=== PATIENT | female | born 1960 | race Caucasian/White ===

== ENCOUNTER 2016-12-08 17:23 | Emergency (ER) | payer MEDICARE, OTHER ==
[~2016-12-08] VITALS: Ht 175.3 cm; Wt 86.4 kg
[2016-12-08 17:45] VITALS: Ht 175.3 cm; Wt 86.4 kg
[2016-12-08] MEDS ORDERED: BELLADONNA/PHENOBARBITAL TAB PO STA (17:56)
[2016-12-08] MEDS ORDERED: FAMOTIDINE 20 MG TAB PO STA (17:56)
[2016-12-08] MEDS ORDERED: SOD CHLORIDE 0.9% 1,000 ML IV STA (17:56)
[2016-12-08] MEDS ORDERED: LIDOCAINE/MYLANTA 40 ML BTL PO STA (17:56)
[2016-12-08] MEDS ORDERED: ONDANSETRON 4 MG INJ IV STA (17:56)
[2016-12-08] MEDS ORDERED: KETOROLAC 15 MG INJ IV STA (17:56)
[2016-12-08] MEDS ORDERED: LORAZEPAM 2 MG INJ IV ONE (18:00)
[2016-12-08] MEDS ORDERED: LORA0.5T PO (18:21)
[2016-12-08] MEDS ORDERED: MECL-77 PO (18:21)
[2016-12-08 18:26] LABS: ADD SCAN DIFF NO
[2016-12-08 18:29] LABS: BASOPHIL # 0.1 10^3/ul (0.0-0.1); BASOPHILS % 0.5 % (0.0-2.0); EOSINOPHILS # 0.3 10^3/ul (0.0-0.5); EOSINOPHILS % 2.6 % (0.0-7.0); HEMATOCRIT 40.7 % (37.0-47.0); LYMPHOCYTES # 2.9 10^3/ul (0.8-2.9); LYMPHOCYTES % 29.3 % (15.0-51.0); MEAN CORPUSCULAR HEMOGLOBIN 31.1 pg (29.0-33.0); MEAN CORPUSCULAR HGB CONC 34.4 g/dl (32.0-37.0); MEAN CORPUSCULAR VOLUME 90.4 fl (82.0-101.0); MEAN PLATELET VOLUME 9.6 fl (7.4-10.4); MONOCYTE # 0.6 10^3/ul (0.3-0.9); MONOCYTES % 6.5 % (0.0-11.0); NEUTROPHILS % 60.8 % (39.0-77.0); PLATELET COUNT 289 10^3/UL (140-415); RED CELL DISTRIBUTION WIDTH 12.2 % (11.5-14.5); WHITE BLOOD COUNT 9.9 10^3/ul (4.8-10.8)
[2016-12-08] MEDS ORDERED: [UNRECOGNIZED DRUG - CODE] PO (18:29)
[2016-12-08 18:53] LABS: ALBUMIN 4.6 g/dl (3.3-4.9); CHLORIDE 103 mmol/L (97-110); POTASSIUM 3.6 mmol/L (3.5-5.1); SODIUM 144 mmol/L (135-144)
[2016-12-08 18:55] LABS: CREATININE 0.71 mg/dl (0.44-1.00)
[2016-12-08 18:56] LABS: ALANINE AMINOTRANSFERASE 40 IU/L (13-69); ALBUMIN/GLOBULIN RATIO 1.31; ALKALINE PHOSPHATASE 164 IU/L (42-121); ANION GAP 19 (8-16); ASPARTATE AMINO TRANSFERASE 33 IU/L (15-46); BILIRUBIN,INDIRECT 0.7 mg/dl (0-1.1); BILIRUBIN,TOTAL 0.7 mg/dl (0.2-1.3); BLOOD UREA NITROGEN 16 mg/dl (7-20); CALCIUM 9.7 mg/dl (8.4-10.2); CARBON DIOXIDE 26 mmol/L (21-31); GLUCOSE 108 mg/dl (70-220); TOTAL PROTEIN 8.1 g/dl (6.1-8.1)
--- NOTE | 2016-12-08 19:02 | ERD ---
ER Documentation Chief Complaint Date/Time DATE: 12/08/16 TIME: 18:53 Chief Complaint ap/epistrastic pain starting this morning but worsened in the afternoon HPI 56-year-old woman brought in by EMS for sharp nonexertional nonradiating epigastric abdominal pain as well as anxiety. She states usually when she becomes anxious she experiences this type of epigastric pain. She describes it as burning, associated with belching, she has had no blood per rectum or melena , no chest pain or shortness of breath, no fevers or chills. Patient denies suicidal homicidal ideation. ROS All systems reviewed and are negative except as per history of present illness. Medications Home Meds Active Scripts Alprazolam* (Xanax*) 0.5 Mg Tab, 0.5 MG PO TID for ANXIETY, #12 TAB Prov:TOSIN ENRIQUEZ MD 12/08/16 Ondansetron Hcl* (Zofran*) 4 Mg Tablet, 4 MG PO Q8H Y for NAUSEA AND/OR VOMITING , #30 TAB Prov:TOSIN ENRIQUEZ MD 12/08/16 Famotidine* (Famotidine*) 40 Mg Tablet, 40 MG PO HS, #30 TAB Prov:TOSIN ENRIQUEZ MD 12/08/16 Mag Hydrox/Al Hydrox/Simeth (Maalox Advanced Suspension) 355 Ml Oral.susp, 2 TSP PO TID for PAIN, #24 Prov:TOSIN ENRIQUEZ MD 12/08/16 Reported Medications Imipramine Pamoate (Imipramine Pamoate) 100 Mg Capsule, 100 MG PO BID, CAP 12/08/16 Lorazepam* (Lorazepam*) 0.5 Mg Tablet, 0.05 MG PO PRN Y for ANXIETY, TAB 12/08/16 Meclizine Hcl* (Meclizine Hcl*) 25 Mg Tablet, 25 MG PO BID Y for DIZZINESS, TAB 12/08/16 Allergies Allergies: Coded Allergies: No Known Allergy (Unverified , 12/08/16) PMhx/Soc Anxiety, gastritis History of Surgery: Yes (HERNIA REPAIR) Anesthesia Reaction: No Hx Neurological Disorder: No Hx Respiratory Disorders: No Hx Cardiac Disorders: No Hx Psychiatric Problems: Yes (DEPRESSION) Hx Miscellaneous Medical Probl: Yes (VERTIGO) Hx Alcohol Use: No Hx Substance Use: No Hx Tobacco Use: No Smoking Status: Never smoker FmHx Family History: No diabetes Physical Exam Vitals Vital Signs Date Time Temp Pulse Resp B/P Pulse Ox O2 Delivery O2 Flow Rate FiO2 12/08/16 20:44 98.2 70 18 130/80 100 Room Air 12/08/16 17:45 98.2 84 18 146/92 100 Physical Exam GENERAL: Well-developed, well-nourished, anxious HEENT: Moist mucous membranes, pink conjunctiva, no cervical spine tenderness or step-off deformities, no goiter, no jaundice or icterus, extraocular movements intact without pain. No submandibular induration, and no pharyngeal erythema NEURO: Alert and oriented 3, cranial nerves II through XII intact bilaterally, pupils equal round reactive to light, no focal deficits or facial asymmetry, sensation intact distally Strength 5/5 in upper and lower extremities bilaterally CARDIAC: Regular rate and rhythm, no murmurs rubs or gallops LUNGS: Clear bilaterally no wheezing crackles or stridor ABDOMEN: Soft nontender, no guarding, no rigidity, no rebound, no psoas sign no obturator sign. Normoactive bowel sounds SKIN: Warm and dry to touch, no abrasions, contusions, or hematomas, no lacerations, no ecchymosis, no target lesions, and without ulcers EXTREMITIES: No clubbing cyanosis or edema, calves are bilaterally symmetrical, no Homans sign, no popliteal cord sign. Distal pulses equal and bilateral PSYCH: Anxious Result Diagram: 12/08/16181512/08/166 Results 24 hrs Laboratory Tests Test 12/08/16 18:16 White Blood Count 9.910^3/ul Red Blood Count 4.5010^6/ul Hemoglobin 14.0g/dl Hematocrit 40.7% Mean Corpuscular Volume 90.4fl Mean Corpuscular Hemoglobin 31.1pg Mean Corpuscular Hemoglobin Concent 34.4g/dl Red Cell Distribution Width 12.2% Platelet Count 46507^3/UL Mean Platelet Volume 9.6fl Neutrophils % 60.8% Lymphocytes % 29.3% Monocytes % 6.5% Eosinophils % 2.6% Basophils % 0.5% Nucleated Red Blood Cells % 0.0/100WBC Neutrophils # 6.010^3/ul Lymphocytes # 2.910^3/ul Monocytes # 0.610^3/ul Eosinophils # 0.310^3/ul Basophils # 0.110^3/ul Nucleated Red Blood Cells # 0.010^3/ul Sodium Level 144mmol/L Potassium Level 3.6mmol/L Chloride Level 103mmol/L Carbon Dioxide Level 26mmol/L Anion Gap 19 Blood Urea Nitrogen 16mg/dl Creatinine 0.71mg/dl Glucose Level 108mg/dl Calcium Level 9.7mg/dl Total Bilirubin 0.7mg/dl Direct Bilirubin 0.00mg/dl Indirect Bilirubin 0.7mg/dl Aspartate Amino Transf (AST/SGOT) 33IU/L Alanine Aminotransferase (ALT/SGPT) 40IU/L Alkaline Phosphatase 164IU/L Troponin I < 0.012ng/ml Total Protein 8.1g/dl Albumin 4.6g/dl Globulin 3.50g/dl Albumin/Globulin Ratio 1.31 Lipase 194U/L Current Medications Medications (Trade) Dose Ordered Sig/Otf Route PRN Reason Start Time Stop Time Status Last Admin Dose Admin Lorazepam 0.5 mg 0.5 mg ONCE ONCE IV 12/08/16 18:00 12/08/16 18:01 DC 12/08/16 18:45 Sodium Chloride (NS) 1,000 ml @ 1,000 mls/hr Q1H STAT IV 12/08/16 17:56 12/08/16 18:55 DC 12/08/16 18:45 Ondansetron HCl (Zofran Inj) 4 mg ONCE STAT IV 12/08/16 17:56 12/08/16 17:58 DC 12/08/16 18:45 Famotidine (Pepcid) 40 mg ONCE STAT PO 12/08/16 17:56 12/08/16 17:58 DC 12/08/16 18:45 Miscellaneous Medication (Gi Cocktail (2)) 40 ml ONCE STAT PO 12/08/16 17:56 12/08/16 17:58 DC 12/08/16 18:45 Belladonna/ Phenobarbital () 2 tab ONCE STAT PO 12/08/16 17:56 12/08/16 17:58 DC 12/08/16 18:45 Ketorolac Tromethamine (Toradol) 15 mg ONCE STAT IV 12/08/16 17:56 12/08/16 17:58 DC 12/08/16 18:44 Procedures/MDM IV line was established patient was placed on panel monitor rhythm strip revealed a sinus rhythm at about 80 bpm with upright P and T waves. Patient was afebrile. EKG performed, read by me: 76 bpm, normal sinus rhythm, normal axis, no acute ST segment changes, narrow QRS complex, with good R-wave progression in precordial leads. I administered 1 L normal saline intravenously, Toradol 15 mg IV, Zofran 4 mg IV , GI cocktail 50 cc p.o., famotidine 40 mg p.o., lorazepam 0.5 mg IV with good response. Patient's symptoms including anxiety improved. CBC and electrolytes were normal, liver function tests were normal, troponin was negative. Differential diagnoses considered, included but not limited to acute coronary syndrome, pulmonary embolism, aortic dissection, abdominal aortic aneurysm, sepsis, stroke, meningitis, encephalitis, pneumonia, appendicitis, cholecystitis , bowel obstruction, pyelonephritis, nephrolithiasis, cystitis, as well as metabolic, hematologic, and electrolyte abnormalities. As well as abscess, cellulitis, fractures, and dislocations. Patient feels much better at this time, and vital signs are normal, symptoms have improved. I did give strict instructions to return to the ED if symptoms continue or worsen, patient will otherwise follow-up with primary care physician. Patient understood instructions and agreed to plan. Departure Diagnosis: Primary Impression: Epigastric pain Additional Impression: Acute anxiety Condition: Good TOSIN ENRIQUEZ MD December 08, 2016 19:02
[2016-12-08 19:12] LABS: TROPONIN-I < 0.012 ng/ml (0.00-0.12)
[2016-12-08] MEDS ORDERED: MAG355OR14 PO (19:35)
[2016-12-08] MEDS ORDERED: FAMO40TA52 PO (19:35)
[2016-12-08] MEDS ORDERED: ALPR0.5T PO (19:35)
[2016-12-08] MEDS ORDERED: ONDA4TAB8 PO (19:35)
[2016-12-08 20:44] VITALS: BP 130/80; PULSE 70; RESP 18; TEMP 98.2
== END 2016-12-08 20:45 | disposition home or self-care (01) ==
LOC: E/R 17:23
DX: R10.13 Epigastric pain (principal); F41.9 Anxiety disorder, unspecified
CPT/HCPCS: 36415; 80053; 83690; 84484; 85025; 93005; 96374; 96375; 99284; J1885; J2060; J2405; J7030

== ENCOUNTER 2016-12-11 21:23 | Emergency (ER) | payer MEDICARE, OTHER ==
[~2016-12-11] VITALS: Ht 162.6 cm; Wt 81.5 kg
[~2016-12-11 21:23] MED LIST: ALPR0.5T PO; FAMO40TA52 PO; LORA0.5T PO; MAG355OR14 PO; MECL-77 PO; ONDA4TAB8 PO; [UNRECOGNIZED DRUG - CODE] PO
[2016-12-11 21:27] VITALS: Ht 162.6 cm; Wt 81.5 kg
[2016-12-11] MEDS ORDERED: ONDANSETRON 4 MG INJ IV STA (22:00)
[2016-12-11] MEDS ORDERED: morphine 4 MG/ML VIAL IV STA (22:00)
--- NOTE | 2016-12-11 22:05 | ERD ---
ER Documentation Chief Complaint Date/Time DATE: 12/11/16 TIME: 22:02 Chief Complaint epigastric pain x 1 month HPI Patient is a 56-year-old female who presents with 1 month of sudden onset, variable intensity, sharp and burning, intermittent epigastric pain that is worse after eating. She reports that the pain radiates up into her chest. She denies vomiting or fever. Denies constipation or diarrhea. She reports that today at 5:00 PM, she started having epigastric pain after eating and enchilada. The pain was mild for approximately 3 hours. She then ate a bowl of cereal with milk, and the pain became severe. Pain occasionally radiates to the back and right upper quadrant. She denies dysuria or hematuria. The patient was seen in the ER 4 days ago and had unremarkable labs, but no ultrasound was performed. ROS All systems reviewed and are negative except as per history of present illness. Medications Home Meds Active Scripts Alprazolam* (Xanax*) 0.5 Mg Tab, 0.5 MG PO TID for ANXIETY, #12 TAB Prov:TOSIN ENRIQUEZ MD 12/08/16 Ondansetron Hcl* (Zofran*) 4 Mg Tablet, 4 MG PO Q8H Y for NAUSEA AND/OR VOMITING , #30 TAB Prov:TOSIN ENRIQUEZ MD 12/08/16 Famotidine* (Famotidine*) 40 Mg Tablet, 40 MG PO HS, #30 TAB Prov:TOSIN ENRIQUEZ MD 12/08/16 Mag Hydrox/Al Hydrox/Simeth (Maalox Advanced Suspension) 355 Ml Oral.susp, 2 TSP PO TID for PAIN, #24 Prov:TOSIN ENRIQUEZ MD 12/08/16 Reported Medications Meclizine Hcl* (Meclizine Hcl*) 25 Mg Tablet, 50 MG PO BID Y for DIZZINESS, TAB 12/11/16 Imipramine Pamoate (Imipramine Pamoate) 100 Mg Capsule, 100 MG PO BID, CAP 12/08/16 Lorazepam* (Lorazepam*) 0.5 Mg Tablet, 0.05 MG PO PRN Y for ANXIETY, TAB 12/08/16 Discontinued Reported Medications Meclizine Hcl* (Meclizine Hcl*) 25 Mg Tablet, 25 MG PO BID Y for DIZZINESS, TAB 12/08/16 Allergies Allergies: Coded Allergies: No Known Allergy (Unverified , 12/11/16) PMhx/Soc Past medical history: Gastritis, depression, vertigo Past surgical history: Hernia 15 years ago Social history: Denies tobacco or alcohol. History of Surgery: Yes (HERNIA REPAIR) Anesthesia Reaction: No Hx Neurological Disorder: No Hx Respiratory Disorders: No Hx Cardiac Disorders: No Hx Psychiatric Problems: Yes (DEPRESSION) Hx Miscellaneous Medical Probl: Yes (VERTIGO) Hx Alcohol Use: No Hx Substance Use: No Hx Tobacco Use: No Smoking Status: Never smoker FmHx Family History: No coronary disease, No diabetes Physical Exam Vitals Vital Signs Date Time Temp Pulse Resp B/P Pulse Ox O2 Delivery O2 Flow Rate FiO2 12/12/16 00:49 81 18 133/86 97 Room Air 12/11/16 23:31 84 139/80 12/11/16 21:27 98.4 89 20 172/90 100 Physical Exam Const: Alert, in mild to moderate pain Head: Atraumatic Eyes: Normal Conjunctiva, no pallor, no icterus ENT: Normal External Ears, Nose and Mouth. Mucous membranes moist Neck: Full range of motion..~ No meningismus. Resp: Clear to auscultation bilaterally, no wheezes, no rales Cardio: Regular rate and rhythm, no murmurs Abd: Soft, nondistended, tender in the epigastrium and right upper quadrant.. Normal bowel sounds Skin: No petechiae or rashes Back: No midline or flank tenderness, no CVA tenderness Ext: No cyanosis, or edema Neur: Awake and alert Psych: Normal Mood and Affect Result Diagram: 12/11/165 12/11/162214 Results 24 hrs Laboratory Tests Test 12/11/16 22:15 12/12/16 00:26 12/12/16 00:28 White Blood Count 8.110^3/ul Red Blood Count 4.1910^6/ul Hemoglobin 13.5g/dl Hematocrit 38.1% Mean Corpuscular Volume 90.9fl Mean Corpuscular Hemoglobin 32.2pg Mean Corpuscular Hemoglobin Concent 35.4g/dl Red Cell Distribution Width 11.9% Platelet Count 17453^3/UL Mean Platelet Volume 9.6fl Neutrophils % 53.6% Lymphocytes % 37.4% Monocytes % 5.3% Eosinophils % 2.8% Basophils % 0.7% Nucleated Red Blood Cells % 0.0/100WBC Neutrophils # 4.310^3/ul Lymphocytes # 3.010^3/ul Monocytes # 0.410^3/ul Eosinophils # 0.210^3/ul Basophils # 0.110^3/ul Nucleated Red Blood Cells # 0.010^3/ul Sodium Level 140mmol/L Potassium Level 3.6mmol/L Chloride Level 104mmol/L Carbon Dioxide Level 25mmol/L Anion Gap 15 Blood Urea Nitrogen 17mg/dl Creatinine 0.79mg/dl Glucose Level 129mg/dl Calcium Level 10.0mg/dl Total Bilirubin 0.4mg/dl Direct Bilirubin 0.00mg/dl Indirect Bilirubin 0.4mg/dl Aspartate Amino Transf (AST/SGOT) 35IU/L Alanine Aminotransferase (ALT/SGPT) 43IU/L Alkaline Phosphatase 153IU/L Total Protein 8.3g/dl Albumin 4.6g/dl Globulin 3.70g/dl Albumin/Globulin Ratio 1.24 Lipase 225U/L Serum HCG, Qualitative NEGATIVE Urine Color LT. YELLOW Urine Clarity CLEAR Urine pH 8.5 Urine Specific [place] 1.015 Urine Ketones NEGATIVE Urine Nitrite NEGATIVE Urine Bilirubin NEGATIVE Urine Urobilinogen 0.2 E.U./dL Urine Leukocyte Esterase NEGATIVE Urine Hemoglobin NEGATIVE Urine Glucose NEGATIVE% Urine Total Protein NEGATIVE Bedside Urine pH (LAB) 8.5 Bedside Urine Protein (LAB) Negative Bedside Urine Glucose (UA) Negative Bedside Urine Ketones (LAB) Negative Bedside Urine Blood Negative Bedside Urine Nitrite (LAB) Negative Bedside Urine Leukocyte Esterase (L Negative Current Medications Medications (Trade) Dose Ordered Sig/Otf Route PRN Reason Start Time Stop Time Status Last Admin Dose Admin Morphine Sulfate (morphine) 4 mg ONCE STAT IV 12/11/16 22:00 12/11/16 22:02 DC 12/11/16 22:10 Ondansetron HCl (Zofran Inj) 4 mg ONCE STAT IV 12/11/16 22:00 12/11/16 22:02 DC 12/11/16 22:10 Miscellaneous Medication (Gi Cocktail (2)) 40 ml ONCE STAT PO 12/11/16 22:00 12/11/16 22:02 DC 12/11/16 22:40 Procedures/MDM EKG read by me: Time 2212, rate 79 Rhythm: Normal sinus Willis: Normal Intervals: Normal ST-T waves: no ischemic changes Ectopy: No Q-waves: No Impression: No evidence of ischemia or arrhythmia MDM: Patient is a 56-year-old female who presents with acute epigastric pain associated with eating. She had a previous episode that occurred 1 week ago. Ultrasound was performed today and shows no evidence of biliary disease. The patient was given a GI cocktail, and her symptoms resolved. She has an unremarkable EKG, labs and UA. She is already on Pepcid. I advised the patient on eating a bland diet that is low in fat, avoiding spicy foods. I advised her on return precautions, and the need to follow-up with a foundation assistant. Departure Diagnosis: Primary Impression: Gastritis Gastritis type: unspecified gastritis Chronicity: acute Gastritis bleeding : without bleeding Qualified Code: K29.00 - Acute gastritis without hemorrhage, unspecified gastritis type Condition: SERGIO Josue MD December 11, 2016 22:05
[2016-12-11] MEDS: LIDOCAINE/MYLANTA 40 ML BTL PO STA ×3 (22:10→22:40)
[2016-12-11 22:42] LABS: ADD SCAN DIFF NO
[2016-12-11 22:44] LABS: BASOPHIL # 0.1 10^3/ul (0.0-0.1); BASOPHILS % 0.7 % (0.0-2.0); EOSINOPHILS # 0.2 10^3/ul (0.0-0.5); EOSINOPHILS % 2.8 % (0.0-7.0); HEMATOCRIT 38.1 % (37.0-47.0); HEMOGLOBIN 13.5 g/dl (12.0-16.0); LYMPHOCYTES % 37.4 % (15.0-51.0); MEAN CORPUSCULAR HEMOGLOBIN 32.2 pg (29.0-33.0); MEAN CORPUSCULAR HGB CONC 35.4 g/dl (32.0-37.0); MEAN CORPUSCULAR VOLUME 90.9 fl (82.0-101.0); MEAN PLATELET VOLUME 9.6 fl (7.4-10.4); MONOCYTE # 0.4 10^3/ul (0.3-0.9); MONOCYTES % 5.3 % (0.0-11.0); NEUTROPHIL # 4.3 10^3/ul (1.6-7.5); NEUTROPHILS % 53.6 % (39.0-77.0); PLATELET COUNT 325 10^3/UL (140-415); RED BLOOD COUNT 4.19 10^6/ul (4.20-5.40); RED CELL DISTRIBUTION WIDTH 11.9 % (11.5-14.5); WHITE BLOOD COUNT 8.1 10^3/ul (4.8-10.8)
--- NOTE | 2016-12-11 22:47 | RADRPT ---
PROCEDURE: Ultrasound of the abdomen. CLINICAL INDICATION: Right upper quadrant pain. TECHNIQUE: Sonographic images of the abdomen were performed. COMPARISON: No pertinent prior examinations were submitted for comparison. FINDINGS: Liver: The liver is normal in echogencity and size measuring approximately 13 cm. The hepatic veins and portal veins are patent with appropriate directional flow. No intrahepatic ductal dilatation is seen. Gallbladder: The gallbladder is not distended and has normal wall thickness. No pericholecystic flu id or gallstones are visualized. The common duct measures 3.8 mm. Pancreas: There is limited evaluation of the pancreatic body and tail. The visualized portions of the pancreas are unremarkable. Kidneys: The right kidney measures 10.5 cm. There is normal corticomedullary differentiation. Ther e is no evidence of renal calculus or hydronephrosis. IVC: The visualized portion of the inferior vena cava is unremarkable. Aorta: Normal in size. Free fluid: None. IMPRESSION: Unremarkable right upper quadrant ultrasound. RPTAT: HIKT .Klaus Can MD, MD Date Time Electronically viewed and signed by .Klaus Can MD, on 12/11/2016 22:47 .T/
[2016-12-11] MEDS ORDERED: MECL-77 PO (23:05)
[2016-12-11 23:19] LABS: ALBUMIN 4.6 g/dl (3.3-4.9); ALBUMIN/GLOBULIN RATIO 1.24; BILIRUBIN,INDIRECT 0.4 mg/dl (0-1.1); BILIRUBIN,TOTAL 0.4 mg/dl (0.2-1.3); CREATININE 0.79 mg/dl (0.44-1.00); POTASSIUM 3.6 mmol/L (3.5-5.1); TOTAL PROTEIN 8.3 g/dl (6.1-8.1)
[2016-12-12 00:27] LABS: URINE BLOOD (Dip) POC Negative (NEGATIVE)
[2016-12-12 00:34] LABS: ADD UMIC NO; URINE BILIRUBIN (Dip) NEGATIVE (NEGATIVE); URINE BLOOD (Dip) NEGATIVE (NEGATIVE); URINE COLOR LT. YELLOW (YELLOW); URINE GLUCOSE (Dip) NEGATIVE (NEGATIVE); URINE KETONES (Dip) NEGATIVE (NEGATIVE); URINE LEUKOCYTE ESTERASE (Dip) NEGATIVE (NEGATIVE); URINE NITRITE (Dip) NEGATIVE (NEGATIVE); URINE TOTAL PROTEIN (Dip) NEGATIVE (NEGATIVE); URINE UROBILINOGEN (Dip) 0.2 E.U./dL (0.1-1.0)
[2016-12-12 00:49] VITALS: BP 133/86; PULSE 81; RESP 18
== END 2016-12-12 00:59 | disposition home or self-care (01) ==
LOC: E/R 21:23
DX: K29.00 Acute gastritis without bleeding (principal); R40.2142 Coma scale, eyes open, spontaneous, at arrival to emergency department; R40.2252 Coma scale, best verbal response, oriented, at arrival to emergency department; R40.2362 Coma scale, best motor response, obeys commands, at arrival to emergency department
CPT/HCPCS: 36415; 76705; 80053; 81003; 83690; 84703; 85025; 93005; 96374; 96375; 99285; J2270; J2405